=== PATIENT | male | born 1955 | race African-American/Black ===

== ENCOUNTER 2016-11-18 07:07 | Emergency (ER) | payer OTHER ==
[~2016-11-18] VITALS: Ht 170.2 cm; Wt 83.9 kg
[2016-11-18] MEDS ORDERED: VALIUM5 MG PO (07:22)
[2016-11-18] MEDS ORDERED: TRAZODONE HCL100 MG PO (07:22)
[2016-11-18] MEDS ORDERED: OXYCONTIN10 M1 PO (07:22)
[2016-11-18] MEDS ORDERED: TRAMADOL 50 MG50 MG PO (07:58)
[2016-11-18] MEDS ORDERED: NAPROSYN500 MG PO (07:58)
[2016-11-18 08:13] VITALS: BP 148/71
[2016-11-18] MEDS ORDERED: ROBAXIN500 MG PO (08:19)
== END 2016-11-18 08:07 | disposition home or self-care (01) ==
LOC: ER 07:07
DX: M54.42 Lumbago with sciatica, left side (principal); F17.210 Nicotine dependence, cigarettes, uncomplicated